=== PATIENT | male | born 1990 | race Caucasian/White ===

== ENCOUNTER 2017-06-11 06:21 | Emergency (ER) | payer OTHER ==
[2017-06-11] MEDS ORDERED: AUGMENTIN 875 MG TAB As Ordered (06:48)
[2017-06-11] MEDS: AUGMENTIN 875 MG TAB PO (06:51)
== END 2017-06-11 06:55 | disposition home or self-care (01) ==
LOC: M ED 06:21
DX: J02.0 Streptococcal pharyngitis (principal)
CPT/HCPCS: 87880